=== PATIENT | female | born 1955 | race Caucasian/White ===

== ENCOUNTER → 2016-08-19 | Outpatient (CLI) | payer OTHER ==
[~2016-08-19] MED LIST: ADIPEX-P37.5 MG PO; BACTRIM DS DPS1 TAB PO; FLAGYL-DPS500 MG PO; FLONASE 0.05% D16 GM NS; LORTAB 5-325 M1 EACH PO; LYRICA100 MG PO; NAPROXEN500 MG PO; PREMARIN0.3 MG PO; PRILOSEC10 MG PO; PRILOSEC20 MG PO; SYNTHROID125 MCG PO; TRAMADOL HCL50 MG PO
== END | disposition home or self-care (01) ==
LOC: RAD.S 09:54
DX: M79.662 Pain in left lower leg (principal); M79.89 Other specified soft tissue disorders; Z96.652 Presence of left artificial knee joint